=== PATIENT | female | born 1950 ===

== ENCOUNTER 2017-01-13 18:21 | Emergency (ER) | payer MEDICARE, OTHER ==
[2017-01-13 18:35] VITALS: BP 103/69; PULSE 85; RESP 18; TEMP 97.8; O2SAT 100
--- NOTE | 2017-01-13 19:28 | C.PDOC ---
History Of Present Illness 66 yo female come in for evaluation of Right ankle and foot pain and swelling developed 3 days ago after sustained twisting injury. Pt reports, developed significant swelling over lateral malleolus of Right ankle that improved with time. Although still experience some discomfort over Right ankle on weight bearing. Otherwise, pt denies obvious deformity, sensory or vascular deficits. Ambulate to ED for evaluation, not in any apparent distress. Time Seen by Provider: 01/13/17 18:36 Chief Complaint (Nursing): Lower Extremity Problem/Injury History Per: Patient History/Exam Limitations: no limitations Onset/Duration Of Symptoms: Days Current Symptoms Are (Timing): Still Present Severity: Mild Recent travel outside of the [place]: No - Ankle/Foot Description Of Injury: Twisted Past Medical History Reviewed: Historical Data, Nursing Documentation, Vital Signs Vital Signs: Last Vital Signs Temp 97.8 F 01/13/17 18:32 Pulse 85 01/13/17 18:32 Resp 18 01/13/17 18:32 BP 103/69 01/13/17 18:32 Pulse Ox 100 01/13/17 19:45 Family History: States: Unknown Family Hx - Social History Hx Alcohol Use: No Hx Substance Use: No Review Of Systems Except As Marked, All Systems Reviewed And Found Negative. Constitutional: Negative for: Fever, Chills Musculoskeletal: Positive for: Other (right ankle and foot pain and swelling) Neurological: Negative for: Weakness, Numbness Physical Exam - Physical Exam Appears: Well, Non-toxic, No Acute Distress Skin: Normal Color, Warm, No Rash, No Ecchymosis Head: Atraumatic, Normacephalic Neck: Normal, Normal ROM, No Midline Cervical Tenderness, No Paracervical Tenderness, No Step Off Deformity, Supple Chest: Symmetrical, No Deformity, No Tenderness Back: Normal Inspection, No Vertebral Tenderness, No Paraspinal Tenderness Extremity: Normal ROM (Right LE), Tenderness (mild tenderness and trace edema over Right lateral malleolus, small superficial barsion noted. No palpable deformity, no neurovascular deficist distally to injury.), No Calf Tenderness, Capillary Refill (less than 2sec to Right foot), No Deformity Neurological/Psych: Oriented x3, Normal Speech, Normal Motor, Normal Sensation, Normal Reflexes ED Course And Treatment O2 Sat by Pulse Oximetry: 100 (on room air) Pulse Ox Interpretation: Normal - Other Rad Right foot X-Ray: Interpreted by Me, Viewed By Me Interpretation: no acute fx Right ankle X-Ray: Interpreted by Me, Viewed By Me Interpretation: (+)?hairline fx distal fibula Progress Note: On re-evaluation, pt is afebrile, hemodynamicaly stable. Right LE: exam c/w ankle sprain, no deformity, no neurovscular deficits. xray: (+)? hairline fx distal fibula. Splint appled, crutches. pt advised and ref. to f/ u with ortho in 2-3 days for re-eavl. return [facility]. Orthopedic Time Performed: 19:30 Time Out: Side verified, Site verified, Patient ID confirmed Procedure: Splint Other:: U-shape ankle splint Location: Right Consent obtained: Verbal Performed by: Mid-level Provider Diagnosis: Fracture Type: Closed Disposition Counseled Patient/Family Regarding: Studies Performed, Diagnosis, Need For Followup, Rx Given - Disposition Referrals: Cintia Diaz MD [Family Provider] - Eden Ocasio MD [Staff Provider] - Disposition Time: 19:40 Condition: STABLE Additional Instructions: Splint to Right ankle until re-evaluated by Orthopedist RICE-rest, ice, compression, elevation Pain medication as need Follow up with Orthopedist in 2-3 days for re-evaluation. Return to Ed if any worsening or new changes. Prescriptions: traMADol [Ultram] 50 mg PO TID #7 tab Instructions: Ankle Fracture (ED) - Clinical Impression Clinical Impression: Ankle fracture - PA / S[employer]IOR [employer] / Resident Statement MD/DO has reviewed & agrees with the documentation as recorded. - Scribe Statement The provider has reviewed the documentation as recorded by the Akash Butts All medical record entries made by the Akash were at my direction and personally dictated by me. I have reviewed the chart and agree that the record accurately reflects my personal performance of the history, physical exam, medical decision making, and the department course for this patient. I have also personally directed, reviewed, and agree with the discharge instructions and disposition.
--- NOTE | 2017-01-14 08:50 | RAD ---
PROCEDURE: Right Ankle Radiographs. HISTORY: injury COMPARISON: None FINDINGS: BONES: An oblique prominent trabecular marking versus a nondisplaced trabecular microfracture of the distal fibula is noted. A 2 x 4 mm mid talar dome subchondral lucency is also noted a subchondral cyst here versus radiographic artifact are considerations. Anterior tibial plafond subchondral cyst are suggested JOINTS: No dislocation or marked joint spurring present SOFT TISSUES: Mild circumferential soft tissue swelling mostly lateral and anterior OTHER FINDINGS: None. IMPRESSION: No displaced fracture. No dislocation. Indeterminate findings regarding the mid talar dome and distal fibula as detailed above.If symptoms persist/warrant consider MRI.
--- NOTE | 2017-01-14 08:53 | RAD ---
PROCEDURE: Right Foot Radiographs. HISTORY: injury COMPARISON: None. FINDINGS: BONES: No fracture.. No dislocation.1st metatarsal osseous hypertrophy with joint space narrowing and joint line spurring -osteoarthrosis. Dorsal ossific debris suggested JOINTS: As above SOFT TISSUES: Mild increased density in minimal soft tissue swelling medial 1st metatarsal joint - findings may relate to bunion OTHER FINDINGS: None. IMPRESSION: No fracture. No dislocation. 1st metatarsal phalangeal joint -osteoarthrosis
== END 2017-01-13 20:37 | disposition home or self-care (01) ==
LOC: C.ER 18:21
DX: S82.891A Other fracture of right lower leg, initial encounter for closed fracture (principal); X50.1XXA Overexertion from prolonged static or awkward postures, initial encounter; Y93.9 Activity, unspecified; Y92.9 Unspecified place or not applicable